=== PATIENT | female | born 1945 | race Caucasian/White ===

== ENCOUNTER → 2017-03-13 | Outpatient (CLI) | payer MEDICARE ==
[2017-03-13 13:19] LABS: HEMOGLOBIN 12.3 g/dL (12.2-16.2); LYMPH # 1.3 K/mm3 (0.7-4.5); LYMPH % 19.5 % (10-50.0)
[2017-03-13 13:43] LABS: URINE BILIRUBIN - DIPSTICK NEGATIVE (NEG); URINE BLOOD NEGATIVE (NEG)
[2017-03-13 14:08] LABS: BUN 22 mg/dL (7-18)
[2017-03-13 14:30] LABS: GFR (ESTIMATED) 44 ML/MIN (59-)
[2017-03-14 05:40] LABS: Iron 59 ug/dL (27-139); Iron Saturation 23 % (15-55); UIBC 196 ug/dL (118-369)
== END ==
LOC: CARL-LAB 09:39
PROVIDERS: Emergency Medicine
DX: E78.5 Hyperlipidemia, unspecified (principal); I10 Essential (primary) hypertension; D64.9 Anemia, unspecified; E03.9 Hypothyroidism, unspecified; M19.90 Unspecified osteoarthritis, unspecified site